=== PATIENT | male | born 1940 | race Caucasian/White ===

== ENCOUNTER 2017-03-01 14:53 | Inpatient (IN) | payer MEDICARE, OTHER ==
--- NOTE | ~2017-03-01 | HP ---
History And Physical [address] [place]. [address] NAME: SUYAPA ARANGO : 38 STATUS : ADM IN [facility]#: [id number] AGE: 76 ADM/REG DATE : 03/01/17 MR#: [id number] REPORT SERV DATE: 03/01/17 DICTATED BY: SYDNEE MORRISON DATE: 03/01/17 REPORT STATUS : Draft TRANSCRIBED BY: MODL DATE: 03/01/17 DATE OF ADMISSION: 03/01/2017 CHIEF COMPLAINT: Nausea and vomiting. HISTORY OF PRESENT ILLNESS: The patient is a 76-year-old gentleman with a past medical history of remote lung cancer, atrial fibrillation, hypertension, and history of GI bleed, who presented to an outside hospital ER today with complaints of nausea and vomiting. The patient says that, he was in his usual state of health until approximately two nights ago when he developed the acute onset of nausea and vomiting. He said, he has vomited a multiple times over the last forty eight hours, has been unable to keep anything p.o. down. He notes some abdominal cramping with nausea and vomiting, but no real severe abdominal pain. He denies any fevers, chills, or sweats. He denies any sick contacts. He denies any recent travel or unusual foods. He notes that today, last couple of times he has vomited, he has seen some dark bloody like substance and at the outside ER, he was heme positive before today; however, he has not noticed any vomiting blood nor has he had any bloody stools. He denies any constipation or diarrhea. On arrival to the ER over there, he was hypotensive with a systolic blood pressure in the 80s. He got several liters of IV fluids and still had a blood pressure in 80s to 90s. He also had some mild acute renal failure, but also had a lactic acidosis with a lactate level of 11. He had an abdominal CT scan over there that showed no acute process in the abdomen. The patient is being transferred over here for further management. PAST MEDICAL HISTORY: 1. Remote history of lung adenocarcinoma stage III, in remission since 2011. 2. Remote history of CVA. 3. Atrial fibrillation, status post pacemaker placement. 4. Hypertension. 5. History of GI bleed secondary to angiodysplastic lesion. 6. History of AAA, status post repair by Dr. Pitts in 2016. 7. History of inguinal hernia repair. HOME MEDICATIONS: See medication reconciliation form. ALLERGIES: PENICILLIN. SOCIAL HISTORY: Fifty-five year history of smoking. No IV drug abuse. No alcohol abuse. FAMILY HISTORY: Per the chart remarkable for coronary artery disease and Parkinson's disease. REVIEW OF SYSTEMS: 10-point review of systems remarkable for some dysuria, otherwise negative except as mentioned in the HPI. PHYSICAL EXAMINATION: History And Physical [address] [address] NAME: SUYAPA ARANGO : 38 STATUS : ADM IN [facility]#: [id number] AGE: 76 ADM/REG DATE : 03/01/17 MR#: [id number] REPORT SERV DATE: 03/01/17 DICTATED BY: SYDNEE MORRISON DATE: 03/01/17 REPORT STATUS : Draft TRANSCRIBED BY: HARPAL DATE: 03/01/17 GENERAL: Elderly gentleman, in no acute distress. HEENT: Pupils are equal, round, and reactive to light. Extraocular movement is intact. Oropharynx is clear. Dry mucous membranes. NECK: Supple. Nontender. No lymphadenopathy. No thyromegaly. No jugular venous distention. LUNGS: Clear to auscultation bilaterally. CARDIOVASCULAR: Tachycardic. No murmurs, rubs, or gallops. ABDOMEN: Mildly tender to palpation in the periumbilical region. No rebound or guarding. No hepatosplenomegaly. EXTREMITIES: No cyanosis, clubbing, or edema. NEUROLOGIC: Alert and oriented x3. Cranial nerves intact. PSYCH: Mood appropriate. LABS AND IMAGING: At the outside hospital, pertinent labs were a creatinine of 1.6, white count of 12.3, BUN of 45, glucose 289, lactic acid of 11. ASSESSMENT AND PLAN: The patient is a 76-year-old gentleman with past medical history of remote lung cancer, hypertension, history of gastrointestinal bleed, who presents to the hospital today with several days of nausea and vomiting, found to be in shock with profound lactic acidosis and acute renal failure. 1. Shock, etiology includes hypovolemic shock from nausea, vomiting, and poor p.o. intake as well as possible septic shock. Empirically, we will place him on antibiotics and we will cover him for a GI source given his nausea, vomiting, abdominal pain. He has a penicillin allergy. So, we will cover him with ciprofloxacin as well as Flagyl. We will get blood cultures x2 as well as procalcitonin and a serum cortisol level. He will get one more liter of fluid here if he remains hypotensed and we will start him on Levophed to maintain a MAP greater than 65. We will get a PICC line. We will also get an echocardiogram to evaluate his cardiac function. EKG shows no acute ST changes with sinus tachycardia. 2. Lactic acidosis. Lactic acid level at outside hospital was 11, repeat level here is pending, most likely this is from his shock state versus possible bowel ischemia. His abdominal CT scan was negative for ischemic bowel, but he did have some bloody emesis this morning. We will get a KUB, repeat a lactic acid level, and continue to treat his shock state as above. I would have low threshold, getting a repeat CT scan and getting surgery involved if he develops an acute abdomen. We will continue doing serial abdominal exams. 3. Acute renal failure. Creatinine was slightly elevated, likely from volume depletion or acute tubular necrosis. Repeat creatinine level here is pending. We will continue to monitor urine output and electrolytes closely. We will continue to hydrate and give pressors to maintain a MAP greater than 65. 4. Nausea and vomiting. Etiology could be a viral gastroenteritis versus other acute abdominal process. LFTs are pending. Rest of his labs are pending as well as KUB. We will treat him symptomatically with antiemetics. We will give him pain medicine as indicated. He did have some bloody emesis this morning. I suspect most likely that is just a Viviana-Starkey tear from his retching for the last two days. We will trend his CBCs q.6 hours for the first [address] on a Protonix drip in case this is a developing gastrointestinal bleed. History And Physical [address] [place]. [address] NAME: SUYAPA ARANGO : 38 STATUS : ADM IN [facility]#: [id number] AGE: 76 ADM/REG DATE : 03/01/17 MR#: [id number] REPORT SERV DATE: 03/01/17 DICTATED BY: SYDNEE MORRISON DATE: 03/01/17 REPORT STATUS : Draft TRANSCRIBED BY: HARPAL DATE: 03/01/17 5. The patient will be on subcu heparin for DVT prophylaxis and Protonix for gastrointestinal prophylaxis. 6. Full code. 7. The patient has a high probability of sudden clinically significant or life-threatening deterioration. Total critical care time spent on this patient at the bedside as well as reviewing his outside records was 45 minutes. MARICARMEN/HARPAL Sydnee Morrison MD / [id number] CC: Roly Robbins M.D.
--- NOTE | ~2017-03-01 | DS ---
Discharge Summary [facility] [address] [place]. [address] NAME: SUYAPA ARANGO : 38 STATUS : DIS IN PAT#: [id number] AGE: 76 ADM/REG DATE : 03/01/17 MR#: [id number] REPORT SERV DATE: 03/06/17 DICTATED BY: GERARD WRIGHT II DATE: 03/05/17 REPORT STATUS : Draft TRANSCRIBED BY: MODL DATE: 03/05/17 ADMISSION DATE: 03/01/2017 DISCHARGE DATE: 03/05/2017 DISCHARGE DIAGNOSES: 1. Hypovolemic shock. 2. Viral gastroenteritis. 3. Lactic acidosis. 4. Questionable component of adrenal insufficiency. 5. Chronic atrial fibrillation, on aspirin. 6. Right upper extremity edema, ultrasound negative. 7. Iron deficiency anemia, acute on chronic status post transfusion. 8. Chronic arthritis, on chronic prednisone. 9. History of gastrointestinal bleed from angiodysplastic lesion, not a candidate for anticoagulation. 10.History of abdominal aortic aneurysm status post repair. 11.History of cerebrovascular accident. CONSULTS: 1. Jermaine Mcclain M.D. with GI. 2. Geremias Morrison M.D. in Pulmonary Critical Care. BRIEF HISTORY OF PRESENT ILLNESS: The patient is a 76-year-old male with the above history, who presented to [facility] due to severe nausea and vomiting with refractory hypotension. He was recently admitted to the ICU by Dr. Morrison. For detailed history and physical examination, please see Dr. Morrison's note from 03/01/2017. HOSPITAL COURSE: After admission, the patient was given aggressive IV fluids and initially started on Cipro and Flagyl. The patient's main complaint was severe nausea and vomiting with no diarrhea. He was hypotensive in the ER, resuscitated, had a PICC line placed, but no sustained pressors. His lactic acid on admission was 11, so he was admitted to the ICU. He was resuscitated and no evidence of infection was clearly identified. His blood pressure stabilized, and his lactic acid resolved. Blood cultures were negative. He did have a hemoglobin of 6.[address] admission. According to Dr. Morrison, there was initially some concern about a GI bleed, but he thought this was likely secondary to a Viviana-Starkey secondary to retching. GI saw the patient and Dr. Mcclain did not see any overt evidence of GI bleed and deferred putting the patient through a scope. He was transfused and his hemoglobin has been stable around 8.8. He has had a history of iron deficiency anemia on chronic iron and had infusions in the past. He has had a history of GI bleeds on Xarelto, now only on aspirin for his atrial fibrillation. Given the patient's significantly low hemoglobin on admission I have incline to at least discharge the patient on an oral PPI as he will continue full- dose aspirin as well as continuing prednisone daily. Apparently, the patient has been taking prednisone daily for an unknown amount of time, but maybe years. Apparently this is for severe arthritis. This may have contributed to some relative adrenal insufficiency on admission as the theory was he had a viral gastroenteritis, was volume depleted and thus hypotensive. His cortisol was 37.8, but then again he is on prednisone. At this point, the Discharge Summary [facility] [address] [place]. [address] NAME: SUYAPA ARANGO : 38 STATUS : DIS IN PAT#: [id number] AGE: 76 ADM/REG DATE : 03/01/17 MR#: [id number] REPORT SERV DATE: 03/06/17 DICTATED BY: GERARD WRIGHT II DATE: 03/05/17 REPORT STATUS : Draft TRANSCRIBED BY: HARPAL DATE: 03/05/17 patient is overall stable and can safely be discharged. He will need to follow up in a week or two to recheck his blood counts. Also of note, he did have some right upper extremity edema and an ultrasound was performed, which was negative for DVT. He does have a pacemaker in the right upper chest and given the aggressive fluid resuscitation this could be obstructing lymphatics and possibly causing edema in the right upper extremity. Currently, it is actually coming down improving, so we will continue to advise elevation and monitoring. The patient is currently stable at discharge. DISCHARGE MEDICATIONS: 1. Lipitor 40 mg p.o. q.h.s. 2. Rythmol 225 mg p.o. q.12 hours. 3. Prednisone 10 mg p.o. daily. 4. Slow-Mag one tablet p.o. daily. 5. Ferrous sulfate 325 mg p.o. daily. 6. Aspirin 325 mg p.o. daily. 7. Protonix 40 mg p.o. daily. DISCHARGE INSTRUCTIONS: The patient will follow with his PCP, Dr. Abdalla, in one to two weeks. GILBERTO/HARPAL Gerard Wright II, MD / [id number] CC: Vaibhav Bateman MD
--- NOTE | ~2017-03-01 | CN ---
Consultation Report [facility] [address] [place]. [address] NAME: SUYAPA ARANGO : 38 STATUS : ADM IN [facility]#: [id number] AGE: 76 ADM/REG DATE : 03/01/17 MR#: [id number] REPORT SERV DATE: 03/02/17 DICTATED BY: JERMAINE MCCLAIN DATE: 03/02/17 REPORT STATUS : Draft TRANSCRIBED BY: MODL DATE: 03/02/17 CONSULTATION DATE OF CONSULTATION: HISTORY OF PRESENT ILLNESS: This 76-year-old man, whom I am asked to see in Dr. Agee's absence for possible GI bleeding. This pleasant gentleman has a remote history of lung cancer, which is apparently in remission. He has been ill for at least a week. He was put on Cipro by his primary care physician for a possible urinary tract infection. Then three to four days ago, he began to get sick with some shaking chills and multiple episodes of emesis. This is pretty much always brown, but there was perhaps some coffee-grounds material yesterday. He was seen at [facility]. He was noted to be hypotensive with a lactic acidosis. He was admitted to [facility] with a provisional diagnosis of severe sepsis, started on Cipro and Flagyl. He is improved overnight. He has chronic anemia and his hemoglobin fell to as low as 6.8 here. He got two units of packed red blood cells and he is up to only 7.5, but part of this is probably dilutional due to the massive volume depletion when he got here. Of interest, he had an EGD and colonoscopy in 12/[address] Agee for evaluation of bright red blood and melena. These exams were remarkable only for left-sided diverticulosis and a cecal AVM. PAST MEDICAL HISTORY: 1. Lung cancer. 2. Atrial fibrillation. 3. Chronic anemia. 4. Hypertension. 5. CVA. 6. History of gastrointestinal bleeding in 2014. 7. History of tobacco abuse. PAST SURGICAL HISTORY: Status post AAA repair, status post inguinal hernia repair. MEDICATIONS: (On admission) aspirin, Lipitor, iron, Slow-Mag, prednisone, Rythmol. (In the hospital) Colace, subcu heparin, insulin, Cipro IV, Flagyl IV, Levophed. ALLERGIES: PENICILLIN. FAMILY HISTORY: No GI malignancies. SOCIAL HISTORY: He smokes but does not drink any alcohol. He is . His is at bedside. REVIEW OF SYSTEMS: Consultation Report [address] [place]. [address] NAME: SUYAPA ARANGO : 38 STATUS : ADM IN PAT#: [id number] AGE: 76 ADM/REG DATE : 03/01/17 MR#: [id number] REPORT SERV DATE: 03/02/17 DICTATED BY: JERMAINE MCCLAIN DATE: 03/02/17 REPORT STATUS : Draft TRANSCRIBED BY: HARPAL DATE: 03/02/17 Otherwise unremarkable for constitutional, endocrine, neurologic, psychiatric, ocular, ENT, pulmonary, cardiovascular, GI, , or rheumatologic symptoms except for as noted above. PHYSICAL EXAMINATION: GENERAL: He is resting comfortably in bed. He is in no acute distress. VITAL SIGNS: Pulse 76, blood pressure 163/80. SKIN: Warm and dry. LUNGS: Clear. ABDOMEN: Soft and nontender. EXTREMITIES: No edema. LABORATORY DATA: Hemoglobin was 6.8 yesterday evening and after two units, came up to 8.2 and is down to 7.5 today with further hydration. White count is down from , BUN 35, creatinine 1.25. Liver enzymes normal. KUB negative. IMPRESSION: 1. Sepsis with hypotension and lactic acidosis, likely of urinary source, now improved with volume resuscitation and antibiotics. 2. Chronic anemia. 3. Multiple episodes of emesis with question of a little bit of coffee-grounds but no evidence of ongoing gastrointestinal bleeding. RECOMMENDATIONS: 1. We will start him liquid diet. 2. Continue Protonix infusion at 8 mg an hour. 3. Discontinue subcu heparin. 4. Monitor hemoglobin and transfuse. /MODL Jermaine Mcclain M.D. / [id number] CC: Roly Rosendo, M.D. MD Panfilo Spencer M.D.
[~2017-03-01 14:53] MED LIST: ? BP MED; ALEVE220 MG PO; ALLEGRA180 PO; ASA5GR PO; ASAB PO; BENICAR HCT1 TA2 PO; CALCIUM PO; CENTRUM TAB1 TAB PO; CORDARONE PO; COZ50 PO; FERROUS SULF325 M1 PO; FLOMAX4 PO; GERITOL PO; HALF81 PO; HYZAAR 50/12.51 TAB PO; IRON; IRON325 MG PO; JANTOVEN7.5 MG PO; KDUR20 PO; KLOR-CON M2020 MEQ PO; LIPITOR40 PO; LORTAB10 PO; MULTIPLE VIT PO; MULTIVIT/MIN PO; P1 PO; P10 PO; PRILOSEC40 MG PO; RYTHMOL SR225 MG PO; SLOW MAG PO; SLOWMAG PO; ULTRAM50 PO; VYTORIN 10/80 T1 TAB PO; XARELTO20 MG PO
[2017-03-01 18:05] LABS: BASOPHILS 0.1 %; BASOPHILS ABSOLUTE 0.01 10/3/uL (0.0-0.16); EOSINOPHILS 0.1 %; EOSINOPHILS ABSOLUTE 0.01 10/3/uL (0.0-0.53); IMMATURE GRANULOCYTES ABSOLUTE 0.12 10/3/uL (0.0-0.11); LYMPHOCYTES 3.4 %; LYMPHOCYTES ABSOLUTE 0.42 10/3/uL (0.67-4.30); MEAN CORPUS HGB CONC 32.7 g/dL (32.0-36.0); MONOCYTES 6.5 %; MONOCYTES ABSOLUTE 0.79 10/3/uL (0.21-1.20); NEUTROPHILS 88.9 %; NEUTROPHILS ABSOLUTE 10.86 10/3/uL (2.02-8.40); PLATELET COUNT 179 10/3/uL (150-400); RBC DISTRIBUTION WIDTH 15.2 % (12.0-16.0)
[2017-03-01 18:18] LABS: HEMATOCRIT 20.8 % (40.0-51.0); HEMOGLOBIN 6.8 g/dL (13.6-17.8); INTERNATIONAL NORMAL RATI 1.3 UNITS (-); PARTIAL THROMBO TIME 28.2 SEC (22.5-37.2); PROTIME (NOT ORD) 15.6 SEC (12.0-14.5); RED CELL COUNT 2.06 10/6/uL (4.7-6.1); WHITE BLOOD CELLS 12.2 10/3/uL (4.5-10.5)
[2017-03-01 18:19] LABS: MANUAL DIFF NO %
[2017-03-01 18:22] LABS: LACTATE 2.3 MMOL/L (0.3-2.4)
[2017-03-01 18:23] LABS: A/G RATIO 0.9 (0.7-1.9); ALBUMIN 2.6 G/DL (3.5-5.0); CHLORIDE, SERUM 113 MMOL/L (96-112); CREATININE 1.23 MG/DL (0.70-1.30); GFR AFRICAN AMERICAN 65 ML/MIN (>=60); GFR NON AFRICAN AMERICAN 56 ML/MIN (>=60); GLOBULIN 2.8 G/DL (2.5-4.1); POTASSIUM, SERUM 4.1 MMOL/L (3.5-5.3); SGOT(AST) 23 U/L (5-40); SGPT(ALT) 22 U/L (5-65); SODIUM, SERUM 146 MMOL/L (135-148); TOTAL BILIRUBIN 0.5 MG/DL (0-1.2); TOTAL PROTEIN 5.4 G/DL (6.0-8.5)
[2017-03-01 18:27] LABS: ALKALINE PHOSPHATASE 65 U/L (45-117); BUN (BLOOD UREA NITROGEN) 44 MG/DL (6-23); CALCIUM, SERUM 7.7 MG/DL (8.5-10.4); CO2 (CARBON DIOXIDE) 24 MMOL/L (24-34); GLUCOSE, SERUM 100 MG/DL (60-99)
[2017-03-01 18:35] LABS: ASCORBIC ACID (UR NOT ORDER) NEG (NEG); BILIRUBIN, URINE NEGATIVE (NEG); KETONE, URINE NEGATIVE (NEG); LEUKOCYTE ESTERASE(NOT OR NEG (NEG); WBC (NOT ORDERED) (RFLEX) < 1 (0-5)
[2017-03-01 18:50] LABS: PROCALCITONIN 0.09 ng/mL (<0.5)
[2017-03-01 20:53] LABS: LACTATE 1.7 MMOL/L (0.3-2.4)
[2017-03-02 05:41] LABS: BASOPHILS 0.2 %; BASOPHILS ABSOLUTE 0.02 10/3/uL (0.0-0.16); EOSINOPHILS 0.4 %; EOSINOPHILS ABSOLUTE 0.04 10/3/uL (0.0-0.53); HEMATOCRIT 25.7 % (40.0-51.0); HEMOGLOBIN 8.2 g/dL (13.6-17.8); IMMATURE GRANULOCYTES 0.5 %; IMMATURE GRANULOCYTES ABSOLUTE 0.05 10/3/uL (0.0-0.11); LYMPHOCYTES 6.6 %; LYMPHOCYTES ABSOLUTE 0.67 10/3/uL (0.67-4.30); MANUAL DIFF NO %; MEAN CORPUS HGB CONC 31.9 g/dL (32.0-36.0); MEAN CORPUSCULAR HEMOGLOB 31.1 pg (26.0-34.0); MEAN CORPUSCULAR VOLUME 97.3 fL (80-100); MEAN PLATELET VOLUME 9.1 fL (9.2-13.0); MONOCYTES ABSOLUTE 1.12 10/3/uL (0.21-1.20); NEUTROPHILS 81.3 %; NEUTROPHILS ABSOLUTE 8.24 10/3/uL (2.02-8.40); PLATELET COUNT 158 10/3/uL (150-400); RBC DISTRIBUTION WIDTH 16.5 % (12.0-16.0); RED CELL COUNT 2.64 10/6/uL (4.7-6.1); WHITE BLOOD CELLS 10.1 10/3/uL (4.5-10.5)
[2017-03-02 05:47] LABS: A/G RATIO 0.9 (0.7-1.9); ALBUMIN 2.6 G/DL (3.5-5.0); ALKALINE PHOSPHATASE 62 U/L (45-117); CALCIUM, SERUM 7.6 MG/DL (8.5-10.4); CHLORIDE, SERUM 116 MMOL/L (96-112); CO2 (CARBON DIOXIDE) 22 MMOL/L (24-34); CREATININE 1.25 MG/DL (0.70-1.30); GFR AFRICAN AMERICAN 64 ML/MIN (>=60); GFR NON AFRICAN AMERICAN 55 ML/MIN (>=60); GLOBULIN 2.9 G/DL (2.5-4.1); PHOSPHORUS, SERUM 2.6 MG/DL (2.5-4.5); POTASSIUM, SERUM 4.3 MMOL/L (3.5-5.3); SGOT(AST) 29 U/L (5-40); SGPT(ALT) 22 U/L (5-65); SODIUM, SERUM 148 MMOL/L (135-148); TOTAL BILIRUBIN 0.7 MG/DL (0-1.2); TOTAL PROTEIN 5.5 G/DL (6.0-8.5)
[2017-03-02 05:50] LABS: BUN (BLOOD UREA NITROGEN) 35 MG/DL (6-23); GLUCOSE, SERUM 79 MG/DL (60-99)
[2017-03-02] MEDS ORDERED: ASA5GR PO (11:36)
[2017-03-02 12:16] LABS: BASOPHILS 0.1 %; BASOPHILS ABSOLUTE 0.01 10/3/uL (0.0-0.16); EOSINOPHILS 0.8 %; EOSINOPHILS ABSOLUTE 0.07 10/3/uL (0.0-0.53); HEMOGLOBIN 7.5 g/dL (13.6-17.8); IMMATURE GRANULOCYTES 0.4 %; IMMATURE GRANULOCYTES ABSOLUTE 0.04 10/3/uL (0.0-0.11); LYMPHOCYTES 3.2 %; LYMPHOCYTES ABSOLUTE 0.29 10/3/uL (0.67-4.30); MEAN CORPUS HGB CONC 33.3 g/dL (32.0-36.0); MEAN CORPUSCULAR HEMOGLOB 32.2 pg (26.0-34.0); MEAN CORPUSCULAR VOLUME 96.6 fL (80-100); MEAN PLATELET VOLUME 8.9 fL (9.2-13.0); MONOCYTES 7.5 %; MONOCYTES ABSOLUTE 0.68 10/3/uL (0.21-1.20); NUCLEATED RED BLOOD CELLS 0.4 /100WBC (0-0); PLATELET COUNT 139 10/3/uL (150-400); RBC DISTRIBUTION WIDTH 17.1 % (12.0-16.0); RED CELL COUNT 2.33 10/6/uL (4.7-6.1); WHITE BLOOD CELLS 9.1 10/3/uL (4.5-10.5)
[2017-03-02 12:17] LABS: HEMATOCRIT 22.5 % (40.0-51.0); MANUAL DIFF NO %
[2017-03-02 15:59] LABS: BASOPHILS 0.1 %; BASOPHILS ABSOLUTE 0.01 10/3/uL (0.0-0.16); EOSINOPHILS 0 %; HEMATOCRIT 24.2 % (40.0-51.0); IMMATURE GRANULOCYTES 0.4 %; IMMATURE GRANULOCYTES ABSOLUTE 0.04 10/3/uL (0.0-0.11); LYMPHOCYTES 2.6 %; LYMPHOCYTES ABSOLUTE 0.27 10/3/uL (0.67-4.30); MEAN CORPUS HGB CONC 33.1 g/dL (32.0-36.0); MEAN CORPUSCULAR HEMOGLOB 31.7 pg (26.0-34.0); MEAN PLATELET VOLUME 8.9 fL (9.2-13.0); MONOCYTES 1.7 %; MONOCYTES ABSOLUTE 0.17 10/3/uL (0.21-1.20); NEUTROPHILS 95.2 %; NEUTROPHILS ABSOLUTE 9.71 10/3/uL (2.02-8.40); PLATELET COUNT 140 10/3/uL (150-400); RBC DISTRIBUTION WIDTH 16.9 % (12.0-16.0); RED CELL COUNT 2.52 10/6/uL (4.7-6.1); WHITE BLOOD CELLS 10.2 10/3/uL (4.5-10.5)
[2017-03-02 16:00] LABS: MANUAL DIFF NO %
[2017-03-03 06:06] LABS: BASOPHILS 0 %; EOSINOPHILS 0 %; HEMOGLOBIN 8.9 g/dL (13.6-17.8); IMMATURE GRANULOCYTES 0.2 %; IMMATURE GRANULOCYTES ABSOLUTE 0.02 10/3/uL (0.0-0.11); LYMPHOCYTES 4.3 %; MEAN CORPUSCULAR HEMOGLOB 31.3 pg (26.0-34.0); MEAN CORPUSCULAR VOLUME 95.1 fL (80-100); MEAN PLATELET VOLUME 9.2 fL (9.2-13.0); MONOCYTES 5.8 %; MONOCYTES ABSOLUTE 0.54 10/3/uL (0.21-1.20); NEUTROPHILS 89.7 %; PLATELET COUNT 154 10/3/uL (150-400); RBC DISTRIBUTION WIDTH 17.9 % (12.0-16.0); RED CELL COUNT 2.84 10/6/uL (4.7-6.1); WHITE BLOOD CELLS 9.3 10/3/uL (4.5-10.5)
[2017-03-03 06:10] LABS: MANUAL DIFF NO %
[2017-03-03 06:25] LABS: A/G RATIO 0.9 (0.7-1.9); ALBUMIN 2.7 G/DL (3.5-5.0); ALKALINE PHOSPHATASE 61 U/L (45-117); CHLORIDE, SERUM 110 MMOL/L (96-112); CO2 (CARBON DIOXIDE) 25 MMOL/L (24-34); CREATININE 1.13 MG/DL (0.70-1.30); GFR AFRICAN AMERICAN 72 ML/MIN (>=60); GFR NON AFRICAN AMERICAN 62 ML/MIN (>=60); PHOSPHORUS, SERUM 2.7 MG/DL (2.5-4.5); POTASSIUM, SERUM 4.3 MMOL/L (3.5-5.3); SGOT(AST) 33 U/L (5-40); SGPT(ALT) 21 U/L (5-65); SODIUM, SERUM 144 MMOL/L (135-148); TOTAL BILIRUBIN 1.1 MG/DL (0-1.2); TOTAL PROTEIN 5.7 G/DL (6.0-8.5)
[2017-03-03 06:27] LABS: BUN (BLOOD UREA NITROGEN) 23 MG/DL (6-23); GLUCOSE, SERUM 131 MG/DL (60-99)
[2017-03-04 04:28] LABS: BASOPHILS 0.1 %; BASOPHILS ABSOLUTE 0.01 10/3/uL (0.0-0.16); EOSINOPHILS 1.6 %; EOSINOPHILS ABSOLUTE 0.12 10/3/uL (0.0-0.53); HEMATOCRIT 26.4 % (40.0-51.0); HEMOGLOBIN 8.6 g/dL (13.6-17.8); IMMATURE GRANULOCYTES 0.4 %; IMMATURE GRANULOCYTES ABSOLUTE 0.03 10/3/uL (0.0-0.11); LYMPHOCYTES 7.5 %; LYMPHOCYTES ABSOLUTE 0.57 10/3/uL (0.67-4.30); MANUAL DIFF NO %; MEAN CORPUS HGB CONC 32.6 g/dL (32.0-36.0); MEAN CORPUSCULAR HEMOGLOB 30.9 pg (26.0-34.0); MEAN PLATELET VOLUME 9.2 fL (9.2-13.0); MONOCYTES 13.4 %; MONOCYTES ABSOLUTE 1.01 10/3/uL (0.21-1.20); NEUTROPHILS ABSOLUTE 5.81 10/3/uL (2.02-8.40); PLATELET COUNT 146 10/3/uL (150-400); RBC DISTRIBUTION WIDTH 17.7 % (12.0-16.0); RED CELL COUNT 2.78 10/6/uL (4.7-6.1); WHITE BLOOD CELLS 7.6 10/3/uL (4.5-10.5)
[2017-03-04 04:44] LABS: BUN (BLOOD UREA NITROGEN) 21 MG/DL (6-23); CALCIUM, SERUM 8.1 MG/DL (8.5-10.4); CHLORIDE, SERUM 108 MMOL/L (96-112); CO2 (CARBON DIOXIDE) 25 MMOL/L (24-34); CREATININE 1.09 MG/DL (0.70-1.30); GFR AFRICAN AMERICAN 75 ML/MIN (>=60); GFR NON AFRICAN AMERICAN 65 ML/MIN (>=60); PHOSPHORUS, SERUM 2.3 MG/DL (2.5-4.5); POTASSIUM, SERUM 3.8 MMOL/L (3.5-5.3); SODIUM, SERUM 142 MMOL/L (135-148)
[2017-03-04 04:45] LABS: GLUCOSE, SERUM 93 MG/DL (60-99)
[2017-03-05 05:10] LABS: BASOPHILS 0.2 %; BASOPHILS ABSOLUTE 0.01 10/3/uL (0.0-0.16); EOSINOPHILS 2.7 %; EOSINOPHILS ABSOLUTE 0.16 10/3/uL (0.0-0.53); HEMATOCRIT 27.3 % (40.0-51.0); HEMOGLOBIN 8.8 g/dL (13.6-17.8); IMMATURE GRANULOCYTES 0.5 %; IMMATURE GRANULOCYTES ABSOLUTE 0.03 10/3/uL (0.0-0.11); LYMPHOCYTES 13.4 %; LYMPHOCYTES ABSOLUTE 0.78 10/3/uL (0.67-4.30); MEAN CORPUS HGB CONC 32.2 g/dL (32.0-36.0); MEAN CORPUSCULAR HEMOGLOB 30.8 pg (26.0-34.0); MEAN CORPUSCULAR VOLUME 95.5 fL (80-100); MEAN PLATELET VOLUME 9.2 fL (9.2-13.0); MONOCYTES 11.7 %; MONOCYTES ABSOLUTE 0.68 10/3/uL (0.21-1.20); NEUTROPHILS 71.5 %; NEUTROPHILS ABSOLUTE 4.17 10/3/uL (2.02-8.40); PLATELET COUNT 142 10/3/uL (150-400); RBC DISTRIBUTION WIDTH 16.7 % (12.0-16.0); RED CELL COUNT 2.86 10/6/uL (4.7-6.1); WHITE BLOOD CELLS 5.8 10/3/uL (4.5-10.5)
[2017-03-05 05:14] LABS: MANUAL DIFF NO %
[2017-03-05 05:27] LABS: BUN (BLOOD UREA NITROGEN) 20 MG/DL (6-23); CALCIUM, SERUM 8.5 MG/DL (8.5-10.4); CHLORIDE, SERUM 107 MMOL/L (96-112); CO2 (CARBON DIOXIDE) 27 MMOL/L (24-34); CREATININE 1.19 MG/DL (0.70-1.30); GFR AFRICAN AMERICAN 68 ML/MIN (>=60); GFR NON AFRICAN AMERICAN 59 ML/MIN (>=60); PHOSPHORUS, SERUM 2.9 MG/DL (2.5-4.5); POTASSIUM, SERUM 3.6 MMOL/L (3.5-5.3); SODIUM, SERUM 144 MMOL/L (135-148)
[2017-03-05 05:31] LABS: GLUCOSE, SERUM 71 MG/DL (60-99)
[2017-03-05] MEDS ORDERED: PROTONIX PO (15:43)
== END 2017-03-05 18:31 | disposition home or self-care (01) | DRG 643 ==
LOC: CCU 14:53 → 4EA 03-04 09:58
PROVIDERS: Internal Medicine
PROC: 30233N1 Transfusion of Nonautologous Red Blood Cells into Peripheral Vein, Percutaneous Approach (ICD-10-PCS; principal; 2017-03-01)
PROC: 02HV33Z Insertion of Infusion Device into Superior Vena Cava, Percutaneous Approach (ICD-10-PCS; 2017-03-01)
PROC: 4A02X4A Measurement of Cardiac Electrical Activity, Guidance, External Approach (ICD-10-PCS; 2017-03-01)
DX: E27.40 Unspecified adrenocortical insufficiency (principal); R57.1 Hypovolemic shock; N17.9 Acute kidney failure, unspecified; E87.2 Acidosis; I48.2 Chronic atrial fibrillation; D50.8 Other iron deficiency anemias; A08.4 Viral intestinal infection, unspecified; I10 Essential (primary) hypertension; M19.90 Unspecified osteoarthritis, unspecified site; Z88.0 Allergy status to penicillin; Z82.49 Family history of ischemic heart disease and other diseases of the circulatory system; Z98.890 Other specified postprocedural states; Z85.118 Personal history of other malignant neoplasm of bronchus and lung; Z86.73 Personal history of transient ischemic attack (TIA), and cerebral infarction without residual deficits
CPT/HCPCS: 36415; 71010; 74000; 80048; 80053; 81001; 82150; 82330; 82533; 82962; 83036; 83605; 83690; 83735; 83880; 84100; 84145; 85025; 85610; 85730; 86850; 86900; 86901; 86920; 87040; 87449; 87641; 93005; 93970; 93971; 97161-GP; A9270-GY; C8929; C9113; G8978-CH-GP; G8979-CH-GP; G8980-CH-GP; J0360; J0744; J1200; J2405; J2550; J3370; P9016; Q9957